=== PATIENT | female | born 1940 | race Caucasian/White ===

== ENCOUNTER 2018-12-17 17:52 | Emergency (ER) | payer MEDICARE ==
--- NOTE | 2018-12-17 18:22 | ER Document Report ---
ED Medical Screen (RME) - General Chief Complaint: Loss of Vision Stated Complaint: RIGHT EYE PAIN/VISION LOSS Time Seen by Provider: 12/17/18 18:12 Mode of Arrival: Ambulatory Information source: Patient Notes: Patient presents emergency department for temporary loss of vision to the right eye. Patient reports she was playing on her iPad this afternoon around 3:00 and lost vision in her right eye. She denied pain, she reports it felt like it was "kind of drawing up like" a tightening of the eye. She reports the symptoms lasted for approximately half an hour now the right eye is blurry. She did go see Dr. Cox coal and ash supervisor. He sent her over here for further evaluation. Dr. Cox suggested MRI\\MRA with contrast of the head. He also suggested possible carotid ultrasound cardiac echo. Patient has history of one TIA in the past. Some surgical history. Reports slight headache at this time. No other complaints such as fever vomiting diarrhea no complaints of head trauma. Dr. Ricco Ashby consulted advised to do CT of the head upon arrival. I have greeted and performed a rapid initial assessment of this patient. A comprehensive ED assessment and evaluation of the patient, analysis of test results and completion of the medical decision making process will be conducted by additional ED providers. Dictation of this chart was performed using voice recognition software; therefore, there may be some unintended grammatical errors. TRAVEL OUTSIDE OF THE [place] IN LAST 30 DAYS: No - Related Data Allergies/Adverse Reactions: No Known Allergies Allergy (Unverified 12/17/18 18:02) Physical Exam - Vital signs Vitals: Temp Pulse Resp BP Pulse Ox 98.2 F 80 16 143/72 H 94 12/17/18 18:00 12/17/18 18:00 12/17/18 18:00 12/17/18 18:00 12/17/18 18:00 Course - Vital Signs Vital signs: Temp Pulse Resp BP Pulse Ox 98.2 F 80 16 143/72 H 94 12/17/18 18:00 12/17/18 18:00 12/17/18 18:00 12/17/18 18:00 12/17/18 18:00
[2018-12-17 18:49] LABS: ABSOLUTE MONOCYTES (AUTO) 0.5 10^3/uL (0.1-1.4); ABSOLUTE NEUT (AUTO) 1.9 10^3/uL (1.7-8.2); BASOPHILS % (AUTO) 0.7 % (0-2); EOSINOPHILS % (AUTO) 0.7 % (0-6); HEMATOCRIT 41.6 % (36.0-47.0); HEMOGLOBIN 14.2 g/dL (12.0-15.5); MEAN CORPUSCULAR HEMOGLOBIN 29.9 pg (27.0-33.4); MEAN CORPUSCULAR VOLUME 88 fl (80-97); MONOCYTES % (AUTO) 8.6 % (3-13); PLATELET COUNT 299 10^3/uL (150-450); RED BLOOD COUNT 4.74 10^6/uL (3.72-5.28); TOTAL CELLS COUNTED % (AUTO) 100 %; WHITE BLOOD COUNT 5.4 10^3/uL (4.0-10.5)
--- NOTE | 2018-12-17 19:05 | RADIOLOGY REPORT (SQ) ---
EXAM DESCRIPTION: CT HEAD WITHOUT COMPLETED DATE/TIME: 12/17/2018 6:53 pm REASON FOR STUDY: mcneill, loss of vision COMPARISON: None. TECHNIQUE: Axial images acquired through the brain without intravenous contrast. Images reviewed wi th bone, brain and subdural windows. Additional sagittal and coronal reconstructions were generated. Images stored on PACS. All CT scanners at this facility use dose modulation, iterative reconstruction, and/or weight based d osing when appropriate to reduce radiation dose to as low as reasonably achievable (ALARA). [facility]: Dose Right [facility]: CareDose [facility]: Dose Right [facility]: Teradose 4D [facility]: [employer] RADIATION DOSE: CT Rad equipment meets quality standard of care and radiation dose reduction techniq ues were employed. CTDIvol: 53.2 mGy. DLP: 1017 mGy-cm. mGy. LIMITATIONS: None. FINDINGS: VENTRICLES: Normal size and contour. CEREBRUM: No masses. No hemorrhage. No midline shift. No evidence for acute infarction. Normal gra y/white matter differentiation. No areas of low density in the white matter. CEREBELLUM: No masses. No hemorrhage. No alteration of density. No evidence for acute infarction. EXTRAAXIAL SPACES: No fluid collections. No masses. ORBITS AND GLOBE: No intra- or extraconal masses. Normal contour of globe without masses. CALVARIUM: No fracture. PARANASAL SINUSES: No fluid or mucosal thickening. SOFT TISSUES: No mass or hematoma. OTHER: No other significant finding. IMPRESSION: NORMAL BRAIN CT WITHOUT CONTRAST. EVIDENCE OF ACUTE STROKE: NO. COMMENT: Quality ID # [id number]: Final reports with documentation of one or more dose reduction techniques (e.g., Automated exposure control, adjustment of the mA and/or kV according to patient size, use of iterative reconstruction technique) TECHNICAL DOCUMENTATION: JOB ID: [id number] [employer]- All Rights Reserved Reading location - IP/workstation name: [email or web address]
[2018-12-17 19:16] LABS: ALANINE AMINOTRANSFERASE 16 U/L (9-52); ALBUMIN 4.2 g/dL (3.5-5.0); ALKALINE PHOSPHATASE 81 U/L (38-126); ANION GAP 7 (5-19); ASPARTATE AMINO TRANSFERASE 21 U/L (14-36); BILIRUBIN,DIRECT 0.2 mg/dL (0.0-0.4); BILIRUBIN,TOTAL 0.2 mg/dL (0.2-1.3); BLOOD UREA NITROGEN 12 mg/dL (7-20); CALCIUM 9.7 mg/dL (8.4-10.2); CARBON DIOXIDE 30 mmol/L (22-30); CHLORIDE 105 mmol/L (98-107); GLUCOSE 95 mg/dL (75-110); POTASSIUM 4.1 mmol/L (3.6-5.0); SODIUM 142.2 mmol/L (137-145); TOTAL PROTEIN 7.1 g/dL (6.3-8.2)
[2018-12-17 20:18] LABS: INTERNATIONAL RATION (INR) 0.85
--- NOTE | 2018-12-17 20:30 | ER Document Report ---
ED General - General Chief Complaint: Loss of Vision Stated Complaint: RIGHT EYE PAIN/VISION LOSS Time Seen by Provider: 12/17/18 18:12 Primary Care Provider: ADA LAY [Primary Care Provider] - Follow up as needed Mode of Arrival: Ambulatory Notes: Patient is a 78-year-old female that presents to the emergency department for chief complaint of right eye vision loss. Patient states that earlier today she had an episode where she completely lost vision for about 1 hour, and as the vision was coming back she had flashes in her right eye, and now is back to its normal. She did go over to an eye physician, and did a full exam, and felt she should come to the emergency department to have an MRI to evaluate for possible stroke. Patient denies prior history of strokes, states she has depression, GERD, hypothyroidism, denies history of hypertension, hyperlipidemia. She does admit to smoking. She denies having any facial droop, difficulty speaking, numbness, weakness or tingling in any extremity. She otherwise feels back to her baseline at this time. She states she did not have any pain associated with her vision loss. Denies any pain at this time. Past Medical History: GERD, hypothyroidism, depression Past Surgical History: Cholecystectomy, hysterectomy Social History: Admits to smoking cigarettes, denies alcohol or drug use. Family History: Reviewed and noncontributory for presenting illness Allergies: Reviewed, see documented allergy list. REVIEW OF SYSTEMS: Other than noted above, the 12 point review of systems was reviewed with the patient and were negative, all pertinent findings are included in the HPI. PHYSICAL EXAMINATION: Vital signs reviewed, nursing noted reviewed. GENERAL: Elderly female, no acute distress. HEAD: Atraumatic, normocephalic. EYES: extraocular movements intact, sclera anicteric, conjunctiva are normal. Pupils are dilated, presumably from dilated retinal exam, but are equal and reactive to light and accommodation. ENT: nares patent, oropharynx clear without exudates. Moist mucous membranes. NECK: Normal range of motion, supple without lymphadenopathy LUNGS: Breath sounds clear to auscultation bilaterally and equal. No wheezes rales or rhonchi. HEART: Regular rate and rhythm without murmurs ABDOMEN: Soft, nontender, normoactive bowel sounds. No rebound, guarding, or rigidity. No masses appreciated. EXTREMITIES: Nontender, good range of motion, no pitting or edema. NEUROLOGICAL: No focal neurological deficits. Moves all extremities spontaneously Motor and sensory grossly intact on exam. PSYCH: Normal mood, normal affect. SKIN: Warm, Dry, normal turgor, no rashes or lesions noted on exposed skin TRAVEL OUTSIDE OF THE [place] IN LAST 30 DAYS: No - Related Data Allergies/Adverse Reactions: No Known Allergies Allergy (Unverified 12/17/18 18:02) Past Medical History - General Information source: Patient - Social History Smoking Status: Current Every Day Smoker Chew tobacco use (# tins/day): No Frequency of alcohol use: None Drug Abuse: None Family History: Reviewed & Not Pertinent Patient has suicidal ideation: No Patient has homicidal ideation: No Renal/ Medical History: Denies: Hx Peritoneal Dialysis Physical Exam - Vital signs Vitals: Temp Pulse Resp BP Pulse Ox 98.2 F 80 16 143/72 H 94 12/17/18 18:00 12/17/18 18:00 12/17/18 18:00 12/17/18 18:00 12/17/18 18:00 - HEENT Visual acuity- Right eye: 20/30 Visual acuity- Left eye: 20/50 Visual acuity- Both eyes: 20/25 Corrective lenses worn: No - Patient states that she has glasses prescribe but not wearing at the moment Course - Re-evaluation Re-evalutation: Patient seen and examined vital signs reviewed. Laboratory data and/or imaging were ordered as appropriate for the patient's presenting symptoms and complaint, with consideration of any critical or life threatening conditions that may be associated with their obtained history and exam as noted above. Results were reviewed when available and demonstrated negative CT imaging of the head, blood work was unremarkable, MRI of the brain was ordered to evaluate for possible stroke. The patient was re-evaluated and was stable, no recurrence of her symptoms, her MRI of her brain demonstrated bilateral lacunar infarcts, concerning for embolic stroke, patient was started on aspirin and given Lovenox Evaluation was most consistent with acute CVA, amaurosis fugax Results were discussed with the patient at this point after careful consideration I feel that that patient should be admitted to the hospital. This was discussed with the patient that it is in the best interest for their care to be admitted for further evaluation and management. Patient agreed with this plan of care. A call was placed to the admitted physician, Dr. Sandro who g raciously accepted the patient onto their service. *Note is created using voice recognition software and may contain spelling, syntax or grammatical errors. Laboratory 12/17/18 12/17/18 12/17/18 18:33 18:33 19:50 WBC 5.4 RBC 4.74 Hgb 14.2 Hct 41.6 MCV 88 MCH 29.9 MCHC 34.0 RDW 14.0 Plt Count 299 Seg Neutrophils % 35.0 L Lymphocytes % 55.0 H Monocytes % 8.6 Eosinophils % 0.7 Basophils % 0.7 Absolute Neutrophils 1.9 Absolute Lymphocytes 3.0 Absolute Monocytes 0.5 Absolute Eosinophils 0.0 Absolute Basophils 0.0 PT 12.0 INR 0.85 APTT 30.0 Sodium 142.2 Potassium 4.1 Chloride 105 Carbon Dioxide 30 Anion Gap 7 BUN 12 Creatinine 0.96 Est GFR ( Amer) > 60 Est GFR (Non-Af Amer) 56 L Glucose 95 Calcium 9.7 Total Bilirubin 0.2 Direct Bilirubin 0.2 Neonat Total Bilirubin Not Reportable Neonat Direct Bilirubin Not Reportable Neonat Indirect Bili Not Reportable AST 21 ALT 16 Alkaline Phosphatase 81 Total Protein 7.[address] 12/17/18 18:18 IMPRESSION: NORMAL BRAIN CT WITHOUT CONTRAST. EVIDENCE OF ACUTE STROKE: NO. Head MRI 12/17/18 20:06 IMPRESSION: 1. Acute lacunar infarcts in the bilateral centrum semiovale and right cerebellar hemisphere. Given the bilaterality and multiplicity, these may be embolic in nature. Consider head and neck MRA for complete evaluation. 2. Chronic microvascular ischemia. - Vital Signs Vital signs: Temp Pulse Resp BP Pulse Ox 98.2 F 80 18 155/82 H 97 12/17/18 18:00 12/17/18 18:00 12/17/18 20:01 12/17/18 20:01 12/17/18 20:01 - Laboratory Result Diagrams: 12/17/18 18:33 12/17/18 18:33 Laboratory results interpreted by me: 12/17/18 12/17/18 18:33 18:33 Seg Neutrophils % 35.0 L Lymphocytes % 55.0 H Est GFR (Non-Af Amer) 56 L - EKG Interpretation by Me Additional EKG results interpreted by me: EKG demonstrates sinus rhythm with a ventricular rate of 68 bpm, normal axis, normal intervals, no evidence of acute ischemia in this EKG. Critical Care Note - Critical Care Note Total time excluding time spent on procedures (mins): 35 Comments: Critical care time 35 minutes exclusive from separate billable procedures for a patient requiring complex medical decision making, and high potential for clinical deterioration. In a patient that had acute vision loss, and acute CVA based on MRI imaging, requiring frequent re-evaluations and monitoring and admission to the hospital. Time spent obtaining history from patient or honorio rogate, discussions with consultants, development of treatment plan with patient or surrogate, evaluation of patient's response to treatment, examination of patient, ordering and performing treatments and interventions, ordering and review of laboratory studies, re-evaluation of patient's condition, ordering and review of radiographic studies and review of old charts Discharge - Discharge Clinical Impression: Acute CVA (cerebrovascular accident), Amaurosis fugax of right eye Condition: Stable Disposition: ADMITTED INPATIENT Admitting Provider: Sandro (Hospitalist) Unit Admitted: IMCU Referrals: LOCALMD,NO [Primary Care Provider] - Follow up as needed
--- NOTE | 2018-12-17 21:55 | RADIOLOGY REPORT (SQ) ---
MR BRAIN WITHOUT IV CONTRAST HISTORY: Transient vision loss in right eye. COMPARISON: CT scan from earlier the same day. TECHNIQUE: Multisequence, multiplanar MR imaging of the brain was performed without the administration of intravenous gadolinium. FINDINGS: There are punctate areas of restricted diffusion in the bilateral centrum semiovale as well as the right cerebral hemisphere, consistent with acute lacunar infarcts. There are additional scattered areas of T2/FLAIR hyperintense foci in the supratentorial white matter, likely representing chronic microvascular ischemia. There is no intracranial hemorrhage, extra-axial fluid collection, or mass. The brainstem, posterior fossa, and cervicomedullary junction are preserved. The intravascular flow voids are preserved. The orbits are unremarkable. No abnormality of the skull base or calvarium is seen. The paranasal sinuses are clear. IMPRESSION: 1. Acute lacunar infarcts in the bilateral centrum semiovale and right cerebellar hemisphere. Given the bilaterality and multiplicity, these may be embolic in nature. Consider head and neck MRA for complete evaluation. 2. Chronic microvascular ischemia.
[2018-12-17] MEDS ORDERED: ASPIRIN 81 MG TABLET, CHEWABLE PO ONE (21:56)
[2018-12-17] MEDS ORDERED: ENOXAPARIN SODIUM INJ 80 MG/0.8 ML DISP.SYRIN SUBCUT ONE (22:13)
[2018-12-17] MEDS ORDERED: ACETAMINOPHEN 325 MG TABLET PO PRN (22:34)
[2018-12-17] MEDS ORDERED: DOCUSATE SODIUM 100 MG CAPSULE PO PRN (22:34)
[2018-12-17] MEDS ORDERED: MAGNESIUM HYDROXIDE SUSP 30 ML UDCUP PO PRN (22:34)
[2018-12-17] MEDS ORDERED: ATORVASTATIN CALCIUM 80 MG TABLET PO SCH (22:45)
--- NOTE | 2018-12-17 23:46 | RADIOLOGY REPORT (SQ) ---
EXAM DESCRIPTION: [facility]Lex: MR BRAIN ANGIOGRAPHY WITHOUT IV CONTRAST CLINICAL HISTORY: 78 years Female; transient right vision loss, cva on mri TECHNIQUE: 3-D TOF MRA head without contrast. MIP reconstructions were performed. Stenosis measurements performed using NASCET criteria. COMPARISON: None. FINDINGS: ICA: patent Vertebrals: patent, although incompletely visualized due to field of view. 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 AICAs patent bilaterally. There is a persistent left trigeminal artery, widely patent, filling the distal basilar artery. A 3 x 3 x 5 mm aneurysm projects superiorly, posteriorly, and to the right from the origin of the right LEATHER STAMPER. LEATHER STAMPER: patent bilaterally Posterior communicating arteries:patent Anterior communicating artery: patent LEONID: patent bilaterally MCA: patent bilaterally The vessel contours are normal. IMPRESSION: 1. 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 3. No focal intracranial stenosis or major branch occlusion.
[2018-12-18] MEDS ORDERED: HEPARIN SOD (PORCINE) 5,000 UNIT/ML 1 ML SYRINGE SUBCUT SCH (06:00)
[2018-12-18 06:40] LABS: ABSOLUTE BASOPHILS # (AUTO) 0.1 10^3/uL (0.0-0.2); ABSOLUTE LYMPHOCYTES (AUTO) 2.3 10^3/uL (0.5-4.7); ABSOLUTE MONOCYTES (AUTO) 0.4 10^3/uL (0.1-1.4); ABSOLUTE NEUT (AUTO) 2.3 10^3/uL (1.7-8.2); EOSINOPHILS % (AUTO) 0.8 % (0-6); HEMATOCRIT 40.7 % (36.0-47.0); HEMOGLOBIN 13.8 g/dL (12.0-15.5); LYMPHOCYTES % (AUTO) 44.7 % (13-45); MEAN CORPUSCULAR HEMOGLOBIN 29.8 pg (27.0-33.4); MEAN CORPUSCULAR HGB CONC 33.9 g/dL (32.0-36.0); MEAN CORPUSCULAR VOLUME 88 fl (80-97); MONOCYTES % (AUTO) 8.4 % (3-13); PLATELET COUNT 271 10^3/uL (150-450); RED BLOOD COUNT 4.64 10^6/uL (3.72-5.28); RED CELL DISTRIBUTION WIDTH 14.2 % (11.5-14.0); SEGMENTED NEUTROPHILS % (AUTO) 45.1 % (42-78); TOTAL CELLS COUNTED % (AUTO) 100 %; WHITE BLOOD COUNT 5.2 10^3/uL (4.0-10.5)
[2018-12-18 06:57] LABS: ANION GAP 9 (5-19); BLOOD UREA NITROGEN 11 mg/dL (7-20); CALCIUM 9.4 mg/dL (8.4-10.2); CARBON DIOXIDE 25 mmol/L (22-30); CHLORIDE 109 mmol/L (98-107); GLUCOSE 97 mg/dL (75-110); POTASSIUM 4.2 mmol/L (3.6-5.0); SODIUM 142.8 mmol/L (137-145)
--- NOTE | 2018-12-18 07:47 | EKG REPORT ---
SEVERITY:- OTHERWISE NORMAL ECG - SINUS RHYTHM ATRIAL PREMATURE COMPLEX : Confirmed by: Bj Schmidt MD 18-Dec-2018 07:47:12
--- NOTE | 2018-12-18 09:55 | PDOC DISCHARGE SUMMARY ---
General - Admit/Disc Date/PCP Admission Date/Primary Care Provider: 12/17/18 22:42 NO LOCALMD Discharge Date: 12/18/18 - Discharge Diagnosis (1) Cerebral aneurysm without rupture Is this a current diagnosis for this admission?: Yes Summary: 3 x 3 x 5mm cerebral artery at the origin of the posterior communicating artery. The plan will be for initiating aspirin and statin therapy as well as antihypertensives. Follow-up with primary care and specialist home in [place]. (2) Acute CVA (cerebrovascular accident) Is this a current diagnosis for this admission?: Yes Summary: Initiate aspirin and statin therapy. Monitor blood pressure. Vision symptoms resolved. (3) Amaurosis fugax of right eye Is this a current diagnosis for this admission?: Yes Summary: As above. Patient has returned. - Additional Information Discharge Diet: Cardiac, Other (Comments) - Caffeine 3 Discharge Activity: Activity As Tolerated, Balance Activity w/Rest Prescriptions: Atorvastatin Calcium [Lipitor 40 mg Tablet] 40 mg PO QHS 14 Days #14 tablet Lisinopril [Prinivil 5 mg Tablet] 5 mg PO DAILY 14 Days #14 tablet Home Medications: Atorvastatin Calcium [Lipitor 40 mg Tablet] 40 mg PO QHS 14 Days #14 tablet 12/18/18 Lisinopril [Prinivil 5 mg Tablet] 5 mg PO DAILY 14 Days #14 tablet 12/18/18 History of Present Illness Patient complains of: Acute onset loss of vision right eye History of Present Illness: OREN ROSALES is a 78 year old female who is originally from [place]. She has a history of neuropathy, allergies, gastroesophageal reflux and hyperhidros is. Yesterday she experienced an acute loss of vision. She went to a local founder and chief executive officer and was referred to the emergency department. Work-up revealed several acute lacunar infarcts. She was started on aspirin and atorvastatin. Additional testing revealed a 3 x 3 x 5 mm aneurysm at the origin of the posterior communicating artery. The patient will be started on aspirin therapy and atorvastatin. I am also starting 5 mg of lisinopril to help with any hypertension. The patient will be driving home to [place]. She will be leaving tomorrow morning. I told her she should not fly. In addition we will provide records for her diagnostic imaging as well as test results. Instructed her to call her primary care physician today to set up appointments in anticipation of arrival home night. Hospital Course Hospital Course: The patient had benign hospital course. She was admitted and examined. She was given aspirin and statin therapy. Her symptoms in fact have resolved today. Mental long discussion about the risks and benefits of travel versus exploring a new diagnosis outside of her home environment. After discussion with the patient, her daughter and myself it was decided that the best course of action considering risks and benefits would be to continue aspirin therapy, initiate statin therapy, start low-dose lisinopril therapy and return home tomorrow. Of note the patient stopped taking aspirin several months ago and will resume it once again. Physical Exam Vital Signs: Temp Pulse Resp BP Pulse Ox 98.0 F 89 21 H 144/75 H 91 L 12/18/18 08:30 12/18/18 07:49 12/18/18 08:01 12/18/18 08:01 12/18/18 08:01 Intake & Output 12/17/18 12/18/18 12/19/18 06:59 06:59 06:59 Weight 78.8 kg General appearance: PRESENT: no acute distress, cooperative, well-developed Head exam: PRESENT: atraumatic, normocephalic Eye exam: PRESENT: conjunctiva pink. ABSENT: scleral icterus Ear exam: PRESENT: normal external ear exam Neck exam: PRESENT: full ROM. ABSENT: carotid bruit, JVD, lymphadenopathy Respiratory exam: PRESENT: clear to auscultation prashant, symmetrical, unlabored. ABSENT: accessory muscle use, rales, rhonchi, tachypnea, wheezes Cardiovascular exam: PRESENT: RRR, +S1, +S2 Pulses: PRESENT: normal radial pulses, +2 pedal pulses bilateral GI/Abdominal exam: PRESENT: normal bowel sounds, soft. ABSENT: distended, tenderness Rectal exam: PRESENT: deferred Neurological exam: PRESENT: alert, awake, oriented to person, oriented to place, oriented to time, oriented to situation, CN II-XII grossly intact. ABSENT: motor sensory deficit Psychiatric exam: PRESENT: appropriate affect. ABSENT: agitated, anxious Focused psych exam: ABSENT: delusional, restlessness Results Laboratory Results: 12/18/18 06:24 12/18/18 06:24 12/17/18 12/17/18 12/18/18 18:33 18:33 06:24 WBC 5.4 5.2 RBC 4.74 4.64 Hgb 14.2 13.8 Hct 41.6 40.7 MCV 88 88 MCH 29.9 29.8 MCHC 34.0 33.9 RDW 14.0 14.2 H Plt Count 299 271 Seg Neutrophils % 35.0 L 45.1 Lymphocytes % 55.0 H 44.7 Monocytes % 8.6 8.4 Eosinophils % 0.7 0.8 Basophils % 0.7 1.0 Absolute Neutrophils 1.9 2.3 Absolute Lymphocytes 3.0 2.3 Absolute Monocytes 0.5 0.4 Absolute Eosinophils 0.0 0.0 Absolute Basophils 0.0 0.1 Sodium 142.2 Potassium 4.1 Chloride 105 Carbon Dioxide 30 Anion Gap 7 BUN 12 Creatinine 0.96 Est GFR ( Amer) > 60 Est GFR (Non-Af Amer) 56 L Glucose 95 Calcium 9.7 Total Bilirubin 0.2 AST 21 ALT 16 Alkaline Phosphatase 81 Total Protein 7.1 Albumin 4.2 12/18/18 06:24 WBC RBC Hgb Hct MCV MCH MCHC RDW Plt Count Seg Neutrophils % Lymphocytes % Monocytes % Eosinophils % Basophils % Absolute Neutrophils Absolute Lymphocytes Absolute Monocytes Absolute Eosinophils Absolute Basophils Sodium 142.8 Potassium 4.2 Chloride 109 H Carbon Dioxide 25 Anion Gap 9 BUN 11 Creatinine 0.64 Est GFR ( Amer) > 60 Est GFR (Non-Af Amer) > 60 Glucose 97 Calcium 9.4 Total Bilirubin AST ALT Alkaline Phosphatase Total Protein Albumin Impressions: Head CT 12/17/18 18:18 IMPRESSION: NORMAL BRAIN CT WITHOUT CONTRAST. EVIDENCE OF ACUTE STROKE: NO. Head MRI 12/17/18 20:06 IMPRESSION: 1. Acute lacunar infarcts in the bilateral centrum semiovale and right cerebellar hemisphere. Given the bilaterality and multiplicity, these may be embolic in nature. Consider head and neck MRA for complete evaluation. 2. Chronic microvascular ischemia. Brain MRI with MRA 12/17/18 22:06 IMPRESSION: 1. 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 3. No focal intracranial stenosis or major branch occlusion. Qualifiers - * PATIENT BEING DISCHARGED WITH ANY OF THE FOLLOWING DIAGNOSIS: Stroke Stroke Pt being discharged on Anti-thrombolytic therapy?: Yes Stroke Pt being discharged on Anti-coagulation therapy?: No Reason(s) for not prescribing Anti-coagulation therapy:: Not indicated Stroke Pt being discharged on Statins?: Yes Acute Heart Failure Is this a Heart Failure Patient?: No
[2018-12-18 10:24] VITALS: BP 108/86
== END 2018-12-18 10:31 | disposition other institution (70) ==
LOC: ER 17:52 → UNDOADMIN 22:42 → EH 22:42 → UNDODISIN 12-18 10:31
DX: I63.9 Cerebral infarction, unspecified (principal); H54.61 Unqualified visual loss, right eye, normal vision left eye; H54.7 Unspecified visual loss; H57.11 Ocular pain, right eye
CPT/HCPCS: 93005; 99291; 36415 ×2; 85025 ×2; 85610; 85730; 80048; 80053; 70551; 70544; 70450; 93010; A9270; J1644; J3490